=== PATIENT | female | born 1975 | race Caucasian/White ===

== ENCOUNTER 2016-08-13 08:36 | Emergency (ER) | payer MEDICAID ==
[2016-08-13 10:44] VITALS: BP 121/76
== END 2016-08-13 10:44 | disposition home or self-care (01) ==
LOC: ED 08:36
DX: M75.101 Unspecified rotator cuff tear or rupture of right shoulder, not specified as traumatic (principal)

== ENCOUNTER 2017-10-06 06:54 | Emergency (ER) | payer MEDICAID ==
[~2017-10-06] VITALS: Ht 165.1 cm; Wt 76.4 kg
[2017-10-06 07:02] VITALS: Ht 165.1 cm; Wt 76.4 kg
[2017-10-06 08:05] LABS: BASOPHIL % 0.4 % (0-2); PLATELET COUNT 288 x10^3mcL (130-400); RED CELL DISTRIBUTION WIDTH 14.3 % (11.5-14.5)
[2017-10-06 08:15] LABS: CALCIUM 8.9 mg/dL (8.5-10.1); CARBON DIOXIDE 27.5 mmol/L (21-32); CHLORIDE SERUM 105 mmol/L (98-107); GLUCOSE SERUM 82 mg/dL (74-106); POTASSIUM SERUM 3.9 mmol/L (3.5-5.1); SODIUM SERUM 139 mmol/L (136-145)
[2017-10-06 08:20] LABS: ALKALINE PHOSPHATASE 68 U/L (46-116); ALT/SGPT 21 U/L (14-59); AMYLASE 85 U/L (25-115); AST/SGOT 14 U/L (15-37); BILIRUBIN TOTAL 0.55 mg/dL (0.20-1.00); LIPASE 175 IU/L (73-393); TOTAL PROTEIN, SERUM 7.9 g/dL (6.4-8.2)
[2017-10-06 08:22] LABS: CREATININE SERUM 0.6 mg/dL (0.6-1.0); GFR1 > 60 mL/min
[2017-10-06 08:43] LABS: UA SPECIFIC GRAVITY <=1.005 (1.005-1.035); microscopic required? YES; urine erythrocyte NEGATIVE (NEGATIVE)
[2017-10-06 10:45] VITALS: BP 101/59
== END 2017-10-06 10:45 | disposition home or self-care (01) ==
LOC: ED 06:54
PROVIDERS: Emergency Medicine
DX: K29.00 Acute gastritis without bleeding (principal); K76.0 Fatty (change of) liver, not elsewhere classified
CPT/HCPCS: 83880; J1885; J2405; J7030; Q0092

== ENCOUNTER 2018-05-08 06:03 | Emergency (ER) | payer MEDICAID ==
[~2018-05-08] VITALS: Ht 167.6 cm; Wt 74.8 kg
[2018-05-08 06:06] VITALS: Ht 167.6 cm; Wt 74.8 kg
[2018-05-08 07:18] VITALS: BP 116/70
== END 2018-05-08 07:19 | disposition home or self-care (01) ==
LOC: ED 06:03
DX: L60.0 Ingrowing nail (principal); Z98.51 Tubal ligation status
CPT/HCPCS: 90715; J2001

== ENCOUNTER 2018-05-12 18:25 | Emergency (ER) | payer MEDICAID ==
[~2018-05-12] VITALS: Ht 162.6 cm; Wt 77.1 kg
[2018-05-12 18:42] VITALS: Ht 162.6 cm; Wt 77.1 kg
[2018-05-12 20:15] VITALS: BP 117/71
== END 2018-05-12 20:15 | disposition home or self-care (01) ==
LOC: ED 18:25
DX: L60.0 Ingrowing nail (principal); L03.032 Cellulitis of left toe; Z98.51 Tubal ligation status
CPT/HCPCS: J2001